=== PATIENT | female | born 1985 | race Caucasian/White ===

== ENCOUNTER 2016-12-21 19:51 | Emergency (ER) | payer BC, MEDICAID ==
--- NOTE | 2016-12-22 09:37 | RAD ---
Exam: Complete left shoulder COMPARISON: None INDICATION: Ground-level fall, left shoulder pain. FINDINGS: AP, Grashey and transscapular y views of the left shoulder were obtained. Overall normal bone mineralization. Alignment is normal. No fracture is identified. Joint spaces are maintained. Tubing is noted overlying the left hemithorax which is otherwise unremarkable. IMPRESSION: No acute osseous abnormality in the left shoulder.
== END 2016-12-21 22:07 | disposition home or self-care (01) ==
LOC: ED 19:51
DX: S49.92XA Unspecified injury of left shoulder and upper arm, initial encounter (principal); W06.XXXA Fall from bed, initial encounter; Y92.003 Bedroom of unspecified non-institutional (private) residence as the place of occurrence of the external cause